=== PATIENT | female | born 1950 | race Caucasian/White ===

== ENCOUNTER → 2017-02-27 | Outpatient (CLI) | payer MEDICARE, BC ==
[~2017-02-27] MED LIST: ALLO100T30 PO; CETI10TA18 PO; CETRIZINE PO; CHOL100015 PO; CHOL200024 PO; CHOL500045 PO; COLC0.6T37 PO; FLUT9.9S IH; FURO20TA3 PO; L.AC1CAP6 PO; LETR2.5T PO; LEVA0.313 RC; LEVO750T26 PO; LEVO75TA PO; LOSA100T6 PO; MAGNESIUM PO; METF500T4 PO; OMEP-110 PO; VENL37.52 PO; VENLAFAXINE PO; VITA1TAB38 PO; [UNRECOGNIZED DRUG - CODE] IART
== END | disposition home or self-care (01) ==
LOC: CFH 12:07
PROVIDERS: ATTEND Surgery
DX: Z01.818 Encounter for other preprocedural examination (principal); Z85.3 Personal history of malignant neoplasm of breast; Z90.12 Acquired absence of left breast and nipple
CPT/HCPCS: G0206-LT